=== PATIENT | male | born 1955 | race African-American/Black ===

== ENCOUNTER 2018-07-27 22:00 | Emergency (ER) | payer MEDICARE, MEDICAID ==
[~2018-07-27] VITALS: Ht 172.7 cm; Wt 100.0 kg
[2018-07-27] MEDS ORDERED: ONDANSETRON HCL 4MG/2ML INJ IV STA (22:47)
[2018-07-27] MEDS ORDERED: SODIUM CHLORIDE 0.9% 1,000 ML IV ONE (22:47)
[2018-07-27 23:34] LABS: BASOPHILS % 0.7 % (0.0-2.0); EOSINOPHILS % 2.3 % (0.0-5.0); HEMATOCRIT. 39.2 % (42.0-52.0); HEMOGLOBIN. 12.9 g/dL (14.0-18.0); LYMPHOCYTES % 28.2 % (20.0-50.0); MEAN CORPUSCULAR HEMOGLOBIN 28.4 pg (28.0-32.0); MEAN CORPUSCULAR VOLUME 86.3 fL (80.0-94.0); MEAN PLATELET VOLUME 9.1 fl (7.4-10.4); MONOCYTES % 4.8 % (2.0-8.0); PLATELET 219 x1000/uL (130-400); RED BLOOD CELL COUNT 4.54 mill/uL (4.7-6.1); RED CELL DISTRIBUTION WIDTH 13.6 % (11.6-14.6)
[2018-07-27 23:39] LABS: CHLORIDE 107 mEq/L (98-107)
[2018-07-27 23:41] LABS: ETHANOL BLOOD 147 mg/dL
[2018-07-27 23:46] LABS: CREATINE KINASE 178 IU/L (39-308)
[2018-07-28 00:28] LABS: CLARITY URINE CLEAR (CLEAR); COLOR URINE YELLOW (YELLOW); KETONES URINE TRACE (NEGATIVE); LEUKOCYTE ESTERASE URINE TRACE (NEGATIVE); NITRITE URINE NEGATIVE (NEGATIVE); OCCULT BLOOD URINE NEGATIVE (NEGATIVE); PH URINE 5.5 (4.5-8.0); PROTEIN URINE NEGATIVE (NEGATIVE); SPECIFIC GRAVITY URINE 1.019 (1.005-1.030)
[2018-07-28] MEDS ORDERED: SODIUM CHLORIDE 0.9% 1,000 ML IV ONE (00:30)
[2018-07-28 00:44] LABS: *AMPHETAMINES SCREEN URINE NEGATIVE (NEGATIVE); *BARBITURATES SCREEN URINE NEGATIVE (NEGATIVE); *BENZODIAZEPINES SCREEN URINE NEGATIVE (NEGATIVE); *COCAINE SCREEN URINE NEGATIVE (NEGATIVE); CANNABINOID URINE SCREEN NEGATIVE (NEGATIVE); METHADONE URINE SCREEN NEGATIVE (NEGATIVE); OPIATES URINE SCREEN NEGATIVE (NEGATIVE); PHENCYCLIDINE URINE SCREEN NEGATIVE (NEGATIVE)
[2018-07-28 01:16] VITALS: BP 96/87
== END 2018-07-28 01:17 | disposition home or self-care (01) ==
LOC: ER 22:42
DX: F10.129 Alcohol abuse with intoxication, unspecified (principal); E78.00 Pure hypercholesterolemia, unspecified; I10 Essential (primary) hypertension; Y90.6 Blood alcohol level of 120-199 mg/100 ml
CPT/HCPCS: 36415; 80053; 80305; 81003; 82550; 84484; 85025; 93005; 96361; 96374; 99285; G0482; J2405; J7030

== ENCOUNTER 2020-11-02 12:20 | Inpatient (IN) | payer BC, MEDICAID ==
[~2020-11-02] VITALS: Ht 182.9 cm; Wt 82.6 kg
[2020-11-02] MEDS ORDERED: SODIUM CHLORIDE 0.9% 1,000 ML IV ONE (12:45)
[2020-11-02 14:42] LABS: BASOPHILS % 0.4 % (0.0-2.0); EOSINOPHILS % 0.9 % (0.0-5.0); HEMATOCRIT. 31.6 % (42.0-52.0); HEMOGLOBIN. 9.9 g/dL (14.0-18.0); LYMPHOCYTES % 15.3 % (20.0-50.0); MEAN CORPUSCULAR HEMOGLOBIN 23.5 pg (28.0-32.0); MEAN CORPUSCULAR VOLUME 74.6 fL (80.0-94.0); MEAN PLATELET VOLUME 8.8 fl (7.4-10.4); MONOCYTES % 8.4 % (2.0-8.0); PLATELET 355 x1000/uL (130-400); RED BLOOD CELL COUNT 4.23 mill/uL (4.7-6.1); RED CELL DISTRIBUTION WIDTH 17.8 % (11.6-14.6)
[2020-11-02 14:46] LABS: INR 1.1; PROTHROMBIN TIME 11.4 sec (9.6-11.0)
[2020-11-02 14:56] LABS: CHLORIDE 106 mEq/L (98-107)
[2020-11-02] MEDS ORDERED: IOHEXOL-300 100 ML BOTTLE ONE (15:25)
[2020-11-02 18:29] LABS: CLARITY URINE CLEAR (CLEAR); COLOR URINE YELLOW (YELLOW); KETONES URINE TRACE (NEGATIVE); LEUKOCYTE ESTERASE URINE NEGATIVE (NEGATIVE); NITRITE URINE NEGATIVE (NEGATIVE); OCCULT BLOOD URINE NEGATIVE (NEGATIVE); PH URINE 7.5 (4.5-8.0); PROTEIN URINE NEGATIVE (NEGATIVE); SPECIFIC GRAVITY URINE 1.051 (1.005-1.030)
[2020-11-03] MEDS ORDERED: HYDROCODONE/ACETAMINOPHEN 5/325MG TABLET PO PRN (05:30)
[2020-11-03] MEDS ORDERED: METOCLOPRAMIDE HCL 5MG TABLET PO SCH (12:00)
[2020-11-03] MEDS ORDERED: BISACODYL 5MG TABLET PO SCH (12:00)
[2020-11-03] MEDS ORDERED: CLONIDINE 0.1MG TABLET PO PRN (12:15)
[2020-11-03] MEDS ORDERED: ACETAMINOPHEN 325MG TABLET PO PRN ×2 (12:15→16:45)
[2020-11-03] MEDS ORDERED: SORBITOL 70% SOLN 30ML PO SCH (13:00)
[2020-11-03] MEDS: SODIUM CHLORIDE 0.9% 1,000 ML IV SCH (14:25)
[2020-11-03] MEDS ORDERED: SORBITOL 70% SOLN 30ML PO NR ×2 (16:00→20:00)
[2020-11-03] MEDS ORDERED: BISACODYL 5MG TABLET PO NR ×2 (16:00→20:00)
[2020-11-03] MEDS ORDERED: METOCLOPRAMIDE HCL 5MG TABLET PO ONE (16:00)
[2020-11-03] MEDS ORDERED: ONDANSETRON HCL 4MG/2ML INJ IV PRN (16:45)
[2020-11-03 17:00] VITALS: BP 143/75
[2020-11-03] MEDS ORDERED: DEXTROSE 50% WATER 50ML SYRINGE IV PRN (17:02)
[2020-11-03] MEDS ORDERED: HYDRALAZINE HCL 10MG TABLET PO PRN (17:02)
[2020-11-03] MEDS: MORPHINE SULFATE 2 MG/ML CPJ (NOT FOR IM USE) IV PRN (17:16)
[2020-11-03] MEDS: INSULIN LISPRO 100 UNITS/ML SUBCUT SCH ×2 (17:20→20:39)
[2020-11-03 18:00] VITALS: BP 137/83
[2020-11-03] MEDS: BLOOD SUGAR DIAGNOSTIC STRIP TEST SCH ×2 (18:01→20:39)
[2020-11-03] MEDS ORDERED: POTASSIUM CHLORIDE INJ 40 MEQ in DEXT 5% WATER 250 ML IV NR (18:30)
[2020-11-03 18:55] LABS: HEMATOCRIT 32.3 % (42.0-52.0); HEMOGLOBIN 10.1 g/dL (14.0-18.0)
[2020-11-03 18:57] LABS: BASOPHILS % 0.8 % (0.0-2.0); EOSINOPHILS % 2.1 % (0.0-5.0); HEMATOCRIT. 31.9 % (42.0-52.0); HEMOGLOBIN. 10.1 g/dL (14.0-18.0); LYMPHOCYTES % 12.5 % (20.0-50.0); MEAN CORPUSCULAR HEMOGLOBIN 23.4 pg (28.0-32.0); MEAN CORPUSCULAR VOLUME 74.1 fL (80.0-94.0); MEAN PLATELET VOLUME 9.1 fl (7.4-10.4); MONOCYTES % 10.5 % (2.0-8.0); NEUTROPHILS % 74.1 % (40.0-76.0); PLATELET 329 x1000/uL (130-400); RED CELL DISTRIBUTION WIDTH 17.8 % (11.6-14.6)
[2020-11-03 19:04] LABS: CHLORIDE 105 mEq/L (98-107)
[2020-11-03 20:00] VITALS: BP 143/88
[2020-11-03] MEDS ORDERED: METOCLOPRAMIDE HCL 5MG TABLET PO NR (20:00)
[2020-11-03 22:00] VITALS: BP 138/87
[2020-11-04] VITALS (11 sets, daily range): BP systolic 120–153; BP diastolic 69–104
[2020-11-04] MEDS ORDERED: SORBITOL 70% SOLN 30ML PO NR (04:00)
[2020-11-04] MEDS ORDERED: METOCLOPRAMIDE HCL 5MG TABLET PO NR (04:00)
[2020-11-04] MEDS ORDERED: BISACODYL 5MG TABLET PO NR (04:00)
[2020-11-04] MEDS: SODIUM CHLORIDE 0.9% 1,000 ML IV SCH (04:31)
[2020-11-04] MEDS: ONDANSETRON HCL 4MG/2ML INJ IV PRN ×2 (04:40→09:01)
[2020-11-04] MEDS: MORPHINE SULFATE 2 MG/ML CPJ (NOT FOR IM USE) IV PRN ×2 (05:03→09:03)
[2020-11-04] MEDS: BLOOD SUGAR DIAGNOSTIC STRIP TEST SCH ×4 (06:50→21:00)
[2020-11-04] MEDS: INSULIN LISPRO 100 UNITS/ML SUBCUT SCH ×4 (07:20→21:00)
[2020-11-04 07:33] LABS: CHLORIDE 108 mEq/L (98-107)
[2020-11-04 07:43] LABS: BASOPHILS % 0.5 % (0.0-2.0); EOSINOPHILS % 2.6 % (0.0-5.0); LYMPHOCYTES % 17.9 % (20.0-50.0); MEAN CORPUSCULAR HEMOGLOBIN 24.3 pg (28.0-32.0); MEAN CORPUSCULAR VOLUME 75.2 fL (80.0-94.0); MEAN PLATELET VOLUME 9.5 fl (7.4-10.4); MONOCYTES % 11.9 % (2.0-8.0); NEUTROPHILS % 67.1 % (40.0-76.0); PLATELET 357 x1000/uL (130-400); RED BLOOD CELL COUNT 4.12 mill/uL (4.7-6.1); RED CELL DISTRIBUTION WIDTH 17.4 % (11.6-14.6)
[2020-11-04] MEDS ORDERED: ENOXAPARIN 40MG/0.4ML SYR SUBCUT SCH (09:00)
[2020-11-04] MEDS: PANTOPRAZOLE SODIUM 40 MG/VIAL IV SCH (09:01)
[2020-11-04] MEDS ORDERED: POTASSIUM CHLORIDE 20MEQ TABLET SR PO SCH (13:00)
[2020-11-04] MEDS ORDERED: KCL 20MEQ/100ML PREMIX 100 ML IV SCH (14:00)
[2020-11-04] MEDS ORDERED: FENTANYL CITRATE/PF 50MCG/ML 2ML VIAL ONE ×2 (14:04→15:07)
[2020-11-04] MEDS ORDERED: MIDAZOLAM HCL 5 MG/5 ML VIAL ONE (14:04)
[2020-11-04] MEDS ORDERED: DIAZEPAM 5 MG/ML 2ML CPJ ONE ×2 (14:41→15:06)
[2020-11-04] MEDS ORDERED: DIPHENHYDRAMINE 50MG/ML VIAL ONE ×2 (15:15→15:19)
[2020-11-04 17:39] LABS: CHLORIDE 109 mEq/L (98-107)
[2020-11-04 17:47] LABS: TOTAL IRON BINDING CAPACITY 360 ug/dL (250-450)
[2020-11-04 18:09] LABS: FERRITIN 7 ng/mL (22-322)
[2020-11-04] MEDS: DEXT 5%/0.45% NACL KCL 20MEQ/L 1,000 ML IV SCH (18:09)
[2020-11-04 18:13] LABS: VITAMIN B12 SERUM 631 pg/mL (211-911)
[2020-11-05] VITALS (16 sets, daily range): BP systolic 69–149; BP diastolic 49–105
[2020-11-05] MEDS: DEXT 5%/0.45% NACL KCL 20MEQ/L 1,000 ML IV SCH ×3 (03:14→18:00)
[2020-11-05 06:42] LABS: BASOPHILS % 0.5 % (0.0-2.0); EOSINOPHILS % 3.4 % (0.0-5.0); HEMATOCRIT. 29.3 % (42.0-52.0); HEMOGLOBIN. 9.4 g/dL (14.0-18.0); LYMPHOCYTES % 26.3 % (20.0-50.0); MEAN CORPUSCULAR HEMOGLOBIN 23.8 pg (28.0-32.0); MEAN CORPUSCULAR VOLUME 74.3 fL (80.0-94.0); MEAN PLATELET VOLUME 9.3 fl (7.4-10.4); MONOCYTES % 12.3 % (2.0-8.0); NEUTROPHILS % 57.5 % (40.0-76.0); PLATELET 322 x1000/uL (130-400); RED BLOOD CELL COUNT 3.95 mill/uL (4.7-6.1); RED CELL DISTRIBUTION WIDTH 17.6 % (11.6-14.6)
[2020-11-05] MEDS: BLOOD SUGAR DIAGNOSTIC STRIP TEST SCH ×4 (06:50→20:25)
[2020-11-05] MEDS: INSULIN LISPRO 100 UNITS/ML SUBCUT SCH ×4 (06:51→20:25)
[2020-11-05 06:56] LABS: CHLORIDE 109 mEq/L (98-107)
[2020-11-05] MEDS ORDERED: SUCCINYLCHOLINE CHLORIDE 200MG/10ML IV ONE (08:22)
[2020-11-05] MEDS ORDERED: MIDAZOLAM HCL 2 MG/2 ML VIAL ONE (08:22)
[2020-11-05] MEDS ORDERED: ETOMIDATE 2MG/ML 10ML VIAL IV ONE (08:22)
[2020-11-05] MEDS ORDERED: FENTANYL CITRATE/PF 50MCG/ML 2ML VIAL ONE ×2 (08:22→11:21)
[2020-11-05] MEDS ORDERED: EPHEDRINE SULFATE 50MG/ML VIAL ONE (08:22)
[2020-11-05] MEDS ORDERED: SODIUM CHLORIDE 0.9% 10ML VIAL ONE (08:22)
[2020-11-05] MEDS ORDERED: LIDOCAINE HCL/PF 1% 10 MG/ML 5ML VIAL ONE (08:23)
[2020-11-05] MEDS ORDERED: ROCURONIUM BROMIDE 10MG/ML VIAL 5ML IV ONE (08:23)
[2020-11-05] MEDS ORDERED: PHENYLEPHRINE HCL 10 MG/ML 1ML (IV VIAL) IV ONE (08:52)
[2020-11-05] MEDS ORDERED: BACITRACIN 50,000 UNITS/VIAL ONE (08:59)
[2020-11-05] MEDS: PANTOPRAZOLE SODIUM 40 MG/VIAL IV SCH (09:00)
[2020-11-05] MEDS ORDERED: LEVOFLOXACIN 500MG PREMIX 100 ML IV ONE (09:03)
[2020-11-05] MEDS ORDERED: METRONIDAZOLE 500 MG PREMIX 100 ML IV ONE (09:03)
[2020-11-05] MEDS ORDERED: DEXAMETHASONE 4MG/ML 1ML VIAL ONE (09:30)
[2020-11-05] MEDS ORDERED: GLYCOPYRROLATE 0.2 MG/ML 2ML VIAL ONE (11:15)
[2020-11-05] MEDS ORDERED: NEOSTIGMINE METHYLSULFATE 1MG/ML 10 ML VIAL ONE (11:15)
[2020-11-05] MEDS ORDERED: LABETALOL HCL 5MG/ML VIAL 20ML IV ONE (11:17)
[2020-11-05] MEDS ORDERED: HYDRALAZINE 20MG/ML VIAL ONE (11:24)
[2020-11-05] MEDS: HYDROMORPHONE HCL/PF 2MG/ML CPJ IV PRN ×11 (12:01→22:11)
[2020-11-05] MEDS: ONDANSETRON HCL 4MG/2ML INJ IV PRN (12:11)
[2020-11-05 13:27] LABS: HEMATOCRIT. 34.3 % (42.0-52.0); HEMOGLOBIN. 10.8 g/dL (14.0-18.0); MEAN CORPUSCULAR HEMOGLOBIN 23.8 pg (28.0-32.0); MEAN CORPUSCULAR VOLUME 75.9 fL (80.0-94.0); MEAN PLATELET VOLUME 8.9 fl (7.4-10.4); PLATELET 303 x1000/uL (130-400); RED BLOOD CELL COUNT 4.52 mill/uL (4.7-6.1); RED CELL DISTRIBUTION WIDTH 17.9 % (11.6-14.6)
[2020-11-05 14:05] LABS: PLATELET ESTIMATE NORMAL
[2020-11-05] MEDS: IRON SUCROSE COMPLEX 100 MG/5 ML ML IV SCH (17:03)
[2020-11-06] VITALS (11 sets, daily range): BP systolic 61–142; BP diastolic 65–85
[2020-11-06] MEDS ORDERED: GUAIFENESIN/CODEINE 100-10MG/5ML UDC PO PRN (01:45)
[2020-11-06] MEDS: DEXT 5%/0.45% NACL KCL 20MEQ/L 1,000 ML IV SCH ×3 (02:39→18:14)
[2020-11-06] MEDS: HYDROMORPHONE HCL/PF 2MG/ML CPJ IV PRN ×5 (02:44→21:00)
[2020-11-06] MEDS: ONDANSETRON HCL 4MG/2ML INJ IV PRN (02:55)
[2020-11-06] MEDS: INSULIN LISPRO 100 UNITS/ML SUBCUT SCH ×5 (06:37→21:00)
[2020-11-06] MEDS: BLOOD SUGAR DIAGNOSTIC STRIP TEST SCH ×4 (06:37→21:00)
[2020-11-06 07:34] LABS: FOLIC ACID (FOLATE) SERUM 5.1 ng/mL (>5.38)
[2020-11-06] MEDS: PANTOPRAZOLE SODIUM 40 MG/VIAL IV SCH (08:07)
[2020-11-06 09:09] LABS: FOLATE HEMATOCRIT 30.7 % (37.5-51.0)
[2020-11-06] MEDS: IRON SUCROSE COMPLEX 100 MG/5 ML ML IV SCH (10:40)
[2020-11-06] MEDS: METOCLOPRAMIDE HCL 10MG/2ML VIAL IV SCH ×2 (12:49→17:24)
[2020-11-06 17:22] LABS: HEMATOCRIT. 30.4 % (42.0-52.0); HEMOGLOBIN. 9.5 g/dL (14.0-18.0); MEAN CORPUSCULAR HEMOGLOBIN 23.7 pg (28.0-32.0); MEAN CORPUSCULAR VOLUME 75.5 fL (80.0-94.0); PLATELET 217 x1000/uL (130-400); RED BLOOD CELL COUNT 4.03 mill/uL (4.7-6.1)
[2020-11-06 17:29] LABS: CHLORIDE 108 mEq/L (98-107)
[2020-11-06 17:49] LABS: BG BASE EXCESS -2.6 mmol/L (-2.0-2.0); BG CARBOXYHEMOGLOBIN 0.3 % (0.5-1.5); BG HCO3 ACT 21.6 mmol/L (22.0-26.0); BG METHEMOGLOBIN 0.6 % (0.0-1.5); BG OXYGEN SATURATION 90.9 % (92.0-98.5); BG OXYHEMOGLOBIN 90.1 % (94.0-97.0); BG PCO2 34.9 mmHg (35.0-45.0); BG PH 7.409 (7.350-7.450); BG PO2 61.5 mmHg (75.0-100.0); BG SAMPLE SITE LEFT RADIAL; BG TOTAL HEMOGLOBIN 10.1 g/dL (12.0-18.0); BG VENT MODE ROOM AIR
[2020-11-06 17:51] LABS: PLATELET ESTIMATE NORMAL
[2020-11-07] VITALS: BP 125/88
[2020-11-07] MEDS: METOCLOPRAMIDE HCL 10MG/2ML VIAL IV SCH ×4 (01:05→18:49)
[2020-11-07] MEDS: DEXT 5%/0.45% NACL KCL 20MEQ/L 1,000 ML IV SCH ×3 (01:38→21:52)
[2020-11-07] MEDS: GUAIFENESIN/CODEINE 200-20MG/10ML UDC PO PRN ×2 (01:38→12:25)
[2020-11-07] MEDS: HYDROMORPHONE HCL/PF 2MG/ML CPJ IV PRN ×4 (03:47→18:49)
[2020-11-07 04:00] VITALS: BP 127/80
[2020-11-07 06:19] LABS: CHLORIDE 108 mEq/L (98-107)
[2020-11-07 06:28] LABS: HEMATOCRIT. 27.9 % (42.0-52.0); MEAN CORPUSCULAR HEMOGLOBIN 24.4 pg (28.0-32.0); MEAN PLATELET VOLUME 9.7 fl (7.4-10.4); PLATELET 208 x1000/uL (130-400); RED BLOOD CELL COUNT 3.67 mill/uL (4.7-6.1); RED CELL DISTRIBUTION WIDTH 17.8 % (11.6-14.6)
[2020-11-07] MEDS: BLOOD SUGAR DIAGNOSTIC STRIP TEST SCH ×4 (06:39→21:00)
[2020-11-07] MEDS: INSULIN LISPRO 100 UNITS/ML SUBCUT SCH ×3 (06:39→17:50)
[2020-11-07 08:00] VITALS: BP 129/84
[2020-11-07] MEDS: IRON SUCROSE COMPLEX 100 MG/5 ML ML IV SCH (09:24)
[2020-11-07] MEDS: PANTOPRAZOLE SODIUM 40 MG/VIAL IV SCH (09:24)
[2020-11-07] MEDS: ENOXAPARIN 40MG/0.4ML SYR SUBCUT SCH (09:25)
[2020-11-07 12:00] VITALS: BP 151/95
[2020-11-07 13:11] LABS: FOLATE RBC 977 ng/mL (>498)
[2020-11-07 16:00] VITALS: BP 145/84
[2020-11-07] MEDS: LEVOFLOXACIN 500MG PREMIX 100 ML IV SCH (18:50)
[2020-11-07 20:00] VITALS: BP 142/88
[2020-11-07 21:53] LABS: PLATELET ESTIMATE NORMAL
[2020-11-08] VITALS: BP 154/74
[2020-11-08] MEDS: GUAIFENESIN/CODEINE 200-20MG/10ML UDC PO PRN ×3 (00:43→17:47)
[2020-11-08] MEDS: METOCLOPRAMIDE HCL 10MG/2ML VIAL IV SCH ×4 (00:52→17:46)
[2020-11-08] MEDS: HYDROMORPHONE HCL/PF 2MG/ML CPJ IV PRN ×3 (00:59→20:30)
[2020-11-08 04:00] VITALS: BP 139/83
[2020-11-08 06:15] LABS: HEMATOCRIT. 26.4 % (42.0-52.0); HEMOGLOBIN. 8.4 g/dL (14.0-18.0); MEAN CORPUSCULAR HEMOGLOBIN 23.6 pg (28.0-32.0); MEAN CORPUSCULAR VOLUME 74.6 fL (80.0-94.0); MEAN PLATELET VOLUME 9.5 fl (7.4-10.4); PLATELET 211 x1000/uL (130-400); RED BLOOD CELL COUNT 3.54 mill/uL (4.7-6.1); RED CELL DISTRIBUTION WIDTH 18.2 % (11.6-14.6)
[2020-11-08 06:26] LABS: CHLORIDE 108 mEq/L (98-107)
[2020-11-08] MEDS: INSULIN LISPRO 100 UNITS/ML SUBCUT SCH ×4 (06:53→20:44)
[2020-11-08] MEDS: BLOOD SUGAR DIAGNOSTIC STRIP TEST SCH ×4 (07:58→20:05)
[2020-11-08 08:00] VITALS: BP 160/95
[2020-11-08] MEDS: PANTOPRAZOLE SODIUM 40 MG/VIAL IV SCH (08:32)
[2020-11-08] MEDS: ENOXAPARIN 40MG/0.4ML SYR SUBCUT SCH (08:33)
[2020-11-08] MEDS: IRON SUCROSE COMPLEX 100 MG/5 ML ML IV SCH (08:33)
[2020-11-08 12:23] VITALS: BP 128/84
[2020-11-08 16:00] VITALS: BP 131/84
[2020-11-08] MEDS: LEVOFLOXACIN 500MG PREMIX 100 ML IV SCH (17:46)
[2020-11-08 18:17] LABS: PLATELET ESTIMATE NORMAL
[2020-11-08 20:00] VITALS: BP 149/92
[2020-11-08] MEDS: DEXT 5%/0.45% NACL KCL 20MEQ/L 1,000 ML IV SCH (20:05)
[2020-11-09] VITALS: BP 148/96
[2020-11-09] MEDS: METOCLOPRAMIDE HCL 10MG/2ML VIAL IV SCH ×3 (00:27→12:18)
[2020-11-09] MEDS: HYDROMORPHONE HCL/PF 2MG/ML CPJ IV PRN ×2 (00:27→05:57)
[2020-11-09 04:00] VITALS: BP 142/94
[2020-11-09] MEDS: BLOOD SUGAR DIAGNOSTIC STRIP TEST SCH ×2 (06:28→12:13)
[2020-11-09 07:49] LABS: CHLORIDE 107 mEq/L (98-107)
[2020-11-09] MEDS: INSULIN LISPRO 100 UNITS/ML SUBCUT SCH ×2 (07:50→12:14)
[2020-11-09 08:00] VITALS: BP 133/77
[2020-11-09 08:09] LABS: BASOPHILS % 0.5 % (0.0-2.0); EOSINOPHILS % 2.7 % (0.0-5.0); HEMATOCRIT. 27.2 % (42.0-52.0); HEMOGLOBIN. 8.7 g/dL (14.0-18.0); LYMPHOCYTES % 12.9 % (20.0-50.0); MEAN CORPUSCULAR HEMOGLOBIN 23.8 pg (28.0-32.0); MEAN CORPUSCULAR VOLUME 74.7 fL (80.0-94.0); NEUTROPHILS % 74.9 % (40.0-76.0); PLATELET 209 x1000/uL (130-400); RED BLOOD CELL COUNT 3.64 mill/uL (4.7-6.1); RED CELL DISTRIBUTION WIDTH 18.5 % (11.6-14.6)
[2020-11-09] MEDS: ENOXAPARIN 40MG/0.4ML SYR SUBCUT SCH (08:43)
[2020-11-09] MEDS: PANTOPRAZOLE SODIUM 40 MG/VIAL IV SCH (08:43)
[2020-11-09] MEDS: IRON SUCROSE COMPLEX 100 MG/5 ML ML IV SCH (08:43)
[2020-11-09 12:00] VITALS: BP 141/92
[2020-11-09 13:33] VITALS: BP 120/75
[2020-11-09 16:00] VITALS: BP 120/75
== END 2020-11-09 16:45 | disposition home or self-care (01) | DRG 329 ==
LOC: ER 12:24 → 3WST 19:46 → ENRESERV 11-03 14:24 → 6EST 11-06 12:20
PROVIDERS: ADMIT Internal Medicine; ATTEND Internal Medicine
PROC: 0DB68ZX Excision of Stomach, Via Natural or Artificial Opening Endoscopic, Diagnostic (ICD-10-PCS; 2020-11-04)
PROC: 0DBF8ZX Excision of Right Large Intestine, Via Natural or Artificial Opening Endoscopic, Diagnostic (ICD-10-PCS; 2020-11-04)
PROC: 0DBK8ZX Excision of Ascending Colon, Via Natural or Artificial Opening Endoscopic, Diagnostic (ICD-10-PCS; 2020-11-04)
PROC: 0DTF0ZZ Resection of Right Large Intestine, Open Approach (ICD-10-PCS; principal; 2020-11-05)
PROC: 0DQ80ZZ Repair Small Intestine, Open Approach (ICD-10-PCS; 2020-11-05)
DX: C18.9 Malignant neoplasm of colon, unspecified (principal); J18.9 Pneumonia, unspecified organism; N17.0 Acute kidney failure with tubular necrosis; C78.7 Secondary malignant neoplasm of liver and intrahepatic bile duct; E46 Unspecified protein-calorie malnutrition; C77.9 Secondary and unspecified malignant neoplasm of lymph node, unspecified; C78.6 Secondary malignant neoplasm of retroperitoneum and peritoneum; K56.600 Partial intestinal obstruction, unspecified as to cause; E86.1 Hypovolemia; I95.9 Hypotension, unspecified; E78.5 Hyperlipidemia, unspecified; E78.00 Pure hypercholesterolemia, unspecified; E86.0 Dehydration; E87.6 Hypokalemia; I10 Essential (primary) hypertension; E11.9 Type 2 diabetes mellitus without complications; D63.0 Anemia in neoplastic disease; K29.70 Gastritis, unspecified, without bleeding; K44.9 Diaphragmatic hernia without obstruction or gangrene; B96.81 Helicobacter pylori [H. pylori] as the cause of diseases classified elsewhere; D50.9 Iron deficiency anemia, unspecified; R09.02 Hypoxemia; Z20.828 Contact with and (suspected) exposure to other viral communicable diseases; R16.0 Hepatomegaly, not elsewhere classified; R26.9 Unspecified abnormalities of gait and mobility; Z85.038 Personal history of other malignant neoplasm of large intestine; Z68.24 Body mass index [BMI] 24.0-24.9, adult
CPT/HCPCS: 36415; 36600; 71045; 74177; 76700; 78580; 80048; 80053; 81003; 82105; 82375; 82378; 82607; 82728; 82746; 82747; 82805; 82962; 83036; 83540; 83550; 83605; 83880; 84484; 85014; 85018; 85025; 85379; 86301; 86850; 86900; 87426; 88305; 88307; 88313; 93005; 93970; 97116; 97162; 97166; 97530; 99152; 99153; 99285; C9113; J0330; J0360; J1100; J1170; J1200; J1650; J1956; J2250; J2270; J2370; J2405; J2710; J2765; J3010; J3480; J3490; J7030; J7040; J7060; J8597; Q9967; G0500